=== PATIENT | male | born 1950 | race Caucasian/White ===

== ENCOUNTER 2024-05-02 06:53 | Day surgery (SDC) | payer OTHER, SELFPAY ==
[2024-05-02] VITALS (12 sets, daily range): BP systolic 118–151; BP diastolic 74–92; BMI 33.6
[2024-05-02 07:26] LABS: Glucose - Point of Care 171 mg/dl (70-99)
[2024-05-02] MEDS: LOW STRENGTH ASPIRIN 81 MG PO (07:28)
[2024-05-02] MEDS: NSS 301 ML IV (07:29)
--- NOTE | 2024-05-02 10:17 | ITS.CL.ANGIO ---
Competitive Intelligence Analyst - Angioplasty
Angioplasty
Procedure Report:
LEFT HEART CATHETERIZATION
Date of Procedure: [05/02/2024]
Procedures performed:
1: Coronary angiography
2: Conscious sedation
3: [ ]
Primary Care Physician: Unknown
Primary Salon Stylist: Self
INDICATION: Abnormal stress test, persistent chest pain
ACCESS: The patient was prepped and draped in usual sterile fashion. A 6 Belgian sheath was placed in the right right radial artery using the Seldinger over the wire technique. Total of 5000 units of heparin was given for anticoagulation
HEMODYNAMIC FINDINGS (mmHg):
LV(s/d,EDP): In order to conserve IV dye use, the aortic valve was not crossed into left ventricle
Ao(s/d,m): 112/80 with a mean of 100
Coronary Angiography: Using a JL 3.5 diagnostic catheter, left main artery was cannulated. Left system was imaged in multiple projections. We had a great deal difficulty engaging the right coronary artery due to subclavian tortuosity and great
vessel spasm. Multiple catheters were tried including multipurpose, AL-1, AR-1, 3 DRC. Finally, we were able to cannulate the right coronary artery with a 5 Belgian JR 5 catheter.
Dominance: Right dominant.
Left Main: Normal artery. Normal vessel. Minor luminal irregularities.
Left Anterior Descending: Large vessel. Mildly calcified. There is 30 to 40% stenosis in the mid LAD at the diagonal vessel bifurcation. Mild calcifications are present. Mild calcifications distal LAD. Normal resting flow.
Left Circumflex: Large vessel. Multiple OM's present. There is a short, focal 90% OM2 lesion. normal resting flow.
Right Coronary: Large vessel. Dominant. 20 to 30% proximal right coronary artery lesion. 95% lesion in the distal RCA proximal to the PLV PDA bifurcation. Normal resting flow.
Percutaneous Coronary Intervention (PCI): Due to the difficulty finding the right coronary artery, and amount of IV dye used, we decided to stage the right coronary artery intervention procedure.
FINAL RESULT: [ ]
Fluoroscopy Time (min): 14 minutes
Radiation Dose (mGy): 1193.70 mGy
DAP (Gy.cm2): 82.6388
Closure device: None. A TR band was applied for hemostasis at the right wrist.
Complications: None.
ASSESSMENT:
1: Double vessel coronary artery disease.
2: Severe right coronary artery stenosis requiring staged intervention.
CONCLUSIONS and RECOMMENDATIONS:
1: Start the patient on maximal antianginal, and dual antiplatelet therapy.
2: Bring back in 2 weeks with intervention to the right coronary artery.
[2024-05-02 10:18] LABS: Glucose - Point of Care 120 mg/dl (70-99)
[2024-05-02] MEDS: NSS 1000 IV (10:18)
[2024-05-02] MEDS: ZESTRIL 20 MG PO (10:20)
[2024-05-02] MEDS: NORVASC 2.5 MG PO (10:20)
[2024-05-02] MEDS: TYLENOL 650 MG PO (11:56)
== END 2024-05-02 12:54 | disposition home or self-care (01) ==
LOC: CATH 06:53
PROVIDERS: ATTENDING PHYSICIAN Internal Medicine Cardiovascular Disease; FAMILY PHYSICIAN Family Medicine
DX: I25.10 Atherosclerotic heart disease of native coronary artery without angina pectoris (principal); I13.0 Hypertensive heart and chronic kidney disease with heart failure and stage 1 through stage 4 chronic kidney disease, or unspecified chronic kidney disease; I50.22 Chronic systolic (congestive) heart failure; N18.2 Chronic kidney disease, stage 2 (mild); E11.22 Type 2 diabetes mellitus with diabetic chronic kidney disease; E78.5 Hyperlipidemia, unspecified; Z85.46 Personal history of malignant neoplasm of prostate; Z87.891 Personal history of nicotine dependence; Z79.82 Long term (current) use of aspirin; Z79.01 Long term (current) use of anticoagulants
CPT/HCPCS: 82962; 93005; 93458; C1894; Q9967

== ENCOUNTER 2024-05-16 06:22 | Day surgery (SDC) | payer OTHER, SELFPAY ==
[2024-05-16] VITALS (31 sets, daily range): BP systolic 110–179; BP diastolic 69–91; BMI 34.5
[2024-05-16] MEDS: LOW STRENGTH ASPIRIN 81 MG PO (07:15)
[2024-05-16] MEDS: PLAVIX 75 MG PO (07:15)
[2024-05-16] MEDS: NSS 299 ML IV (07:15)
[2024-05-16 07:50] LABS: Blood Urea Nitrogen 30 mg/dl (9-20); Calcium 9.7 mg/dl (8.4-10.2); Carbon Dioxide 26 mmol/L (22-30); Chloride 102 mmol/L (98-107); Estimated Creatinine Clearance 65 ml/min; Glucose 148 mg/dl (70-99); Sodium 141 mmol/L (135-145); eGFR > 60.00
[2024-05-16 09:05] LABS: ACT-LR - POC 282 Seconds (116-155)
[2024-05-16] MEDS: NSS 1000 IV (09:27)
--- NOTE | 2024-05-16 09:34 | ITS.CL.ANGIO ---
Research Physician - Angioplasty
Angioplasty
Procedure Report:
CARDIAC CATHETERIZATION REPORT
Date of Procedure: [05/16/2024]
Referring: Self
INDICATION: Abnormal nuclear stress test, stable angina
PROCEDURE:
PCI with STAR x 3 to the right coronary artery
Coronary angiography
Informed consent was obtained in the holding area. Inherent risks of the procedure including stroke, , NH, bleeding, were explained to the patient. The patient agreed to proceed despite the risks.
Bilateral groins were prepped and draped in sterile fashion. Using ultrasound guidance, a 6 Senegalese 23 cm sheath was placed in the right common femoral artery.
[ ]
INTERVENTION(S)
Using a hockey-stick guide, the right coronary artery was engaged. Coronary angiography was performed. Once again, we demonstrated several subsequent 95% lesions in the distal RCA just proximal to the PLV PDA bifurcation. In addition, there is a
calcified lesion at the bend in the proximal RCA. There is CAMERON II flow at rest in the PDA.
Using a run-through wire, both distal RCA lesions were crossed. Patient was given 10,000 units IV heparin for anticoagulation. Using guide liner catheter for support, the distal RCA lesions were predilated using a 2.0 x 20 mm balloon. We then,
upgraded to 2.5 x 20 mm semicompliant balloon and performed several balloon dilatations. There was improvement in the flow in the distal RPDA.
We then proceeded upsized to 2.5 x 20 mm balloon. We were not fully able to expand the lesions. We then took a 2.5 x 20 mm noncompliant balloon and performed several aggressive balloon dilatations. 2.5 x 20 mm NC balloon was able to fully expand
the lesions.
We then placed a 2.75 x 26 mm [place] drug-eluting stent in the distal right coronary artery just proximal to PDA PLV bifurcation. Just proximal to that stent, we deployed a 2.75 x 18 mm Guido drug-eluting stent. The stents were then postdilated using
a 2.75 x 20 m noncompliant balloon to 20 cameron. There was full expansion of the stents noted.
The GuideLiner catheter was then pulled back. We noted hazy area at the site of the proximal RCA band. We felt that that area needed to be covered with a stent as well. We deployed a 3.5 mm x 15 mm Guido drug-eluting stent to cover the lesion in
the RCA bend. The stent was then postdilated using a 3.5 x 12 mm noncompliant balloon. Intravascular ultrasound was performed using a [employer] eye catheter to evaluate for stent expansion. The minimal lumen diameter is at least 4.2 mm.
There was 180 degree calcifications also noted. It was clear that the stent was underexpanded. Therefore, we took a 4.0 x 12 mm noncompliant balloon and postdilated the stent to 14 cameron. Post balloon inflation there is no dissection or perforation
and CAMERON-3 flow throughout the RCA. At this point, without the patient was adequately revascularized and procedure was concluded.
Femoral angiography was performed. The patient was found to be suitable for closure device.
Closure Device: [6 Senegalese Angio-Seal device was successfully deployed]
Radiation (mGy): 2139.11 mGy
DAP (cm2.Gy): 109.49
Fluoroscopy time (minutes): 14.7 minutes
I was present with the patient for the duration of the moderate sedation and supervised staff who monitored the patient for the entire procedure. Details of sedation are entered by the nurse administering the sedation and details of the patient's
monitoring status are entered by a sign monitor role staff member into the [facility] laboratory electronic record system. Please see the nursing flow sheets for documentation of the name of the independent trained observer, and intra-service start and
end times.
I administered moderate sedation throughout this [65] minute procedure. An independent trained observer administered medications at my direction, and monitored, along with the monitor role staff member, the patient's level of consciousness and
physiological status throughout
CONCLUSIONS
1. Redemonstrated critical right coronary artery disease.
2. Successful PCI with STAR x 3 to the right coronary artery.
RECOMMENDATIONS:
1. Expectant management after cardiac catheterization via right femoral artery approach.
2. Limited activity x 1 week
3. Continue aggressive medical therapy. Patient is not on a beta-kelly due to baseline bradycardia and heart rates in the 40s and 50s.
[2024-05-16] MEDS: NORVASC 2.5 MG PO ×2 (10:36→19:39)
[2024-05-16] MEDS: COLACE 100 MG PO ×2 (10:36→19:39)
[2024-05-16] MEDS: ORETIC 25 MG PO (10:39)
[2024-05-16] MEDS: ZESTRIL 20 MG PO (10:39)
--- NOTE | 2024-05-16 15:50 | CM ---
Addendum entered by Ban Pyle RN 05/17/24 10:39:
Patient agreeable to the cost.
Original Note:
Asked to check co-pay for Brilinta 90 mg po bid. Telephone call to his insurance to check on co-pay,([phone]) to check on co-pay. His co-pay for retail would be $47.00 a month and for a 90 day supply mail order would be $94.00 for a 90 day
supply. He can use the one free month coupon. Telephone call to [facility] in [place] who states they have one bottle of Brilinta in stock. Updated AMBULANCE DRIVER regarding above.
--- NOTE | 2024-05-16 18:46 | PTCARENOTE ---
Received pt post cardiac cath. VSS. Right groin site w/ dressing and angioseal intact. Orders noted.
[2024-05-16] MEDS: BRILINTA 90 MG PO (19:39)
--- NOTE | 2024-05-16 21:30 | PTCARENOTE ---
Received patient at change of shift. Patient awake, alert, and oriented eating dinner in bed. BP 139/86, SR-NS 52-70 with PVCs, and 95% on room air. No chest pain. Right groin site clean, dry, and intact. Soft with no hematoma. Ecchymotic around
gauze. Discussed care plan. Patient verbalized understanding. Call valentine within reach.
[2024-05-17 04:34] VITALS: BP 137/76
[2024-05-17 04:37] VITALS: BP 137/76
[2024-05-17 05:14] VITALS: BMI 33.9
--- NOTE | 2024-05-17 05:29 | PTCARENOTE ---
Patient rested quietly during the night. Right groin soft, no hematoma, clean, dry, and intact. Ecchymotic around gauze. Ambulated to bathroom throughout night, independently. No complaints of chest pain.
[2024-05-17 05:31] LABS: Hematocrit 39.5 % (39.0-52.0); Hemoglobin 14.4 g/dL (13.0-18.0); Mean Corp Hgb Conc. 36.5 g/dL (33.0-37.0); Mean Corpuscular Hgb 31.6 pg (27.0-31.0); Mean Corpuscular Volume 86.6 fL (80.0-94.0); Mean Platelet Volume 11.2 fL (7.4-10.4); Platelet Count 196 10^3/uL (130-400); Red Blood Cell Count 4.56 10^6/uL (4.70-6.10); Red Cell Dist. Width 12.9 % (11.5-14.5); White Blood Cell Count 7.8 10^3/uL (4.8-10.8)
[2024-05-17 05:57] LABS: Blood Urea Nitrogen 23 mg/dl (9-20); Calcium 9.7 mg/dl (8.4-10.2); Carbon Dioxide 24 mmol/L (22-30); Chloride 104 mmol/L (98-107); Estimated Creatinine Clearance 79 ml/min; Glucose 152 mg/dl (70-99); HDL Cholesterol 38 mg/dl; LDL Cholesterol, Calculated 73 mg/dl; Potassium 3.8 mmol/L (3.5-5.1); Sodium 139 mmol/L (135-145); Total Cholesterol 147 mg/dl (50-199); Triglyceride 184 mg/dl (10-149); Very Low Density Lipoprotein 36 mg/dl (0-30); eGFR > 60.00
[2024-05-17 06:10] VITALS: BMI 33.9
[2024-05-17 07:39] VITALS: BP 124/77
[2024-05-17 08:17] LABS: ACT-LR - POC > 397 Seconds (116-155)
[2024-05-17 08:17] LABS: ACT-LR - POC > 397 Seconds (116-155)
[2024-05-17] MEDS: ASPIR LOW (ENTERIC COATED) 81 MG PO (08:54)
[2024-05-17] MEDS: NORVASC 2.5 MG PO (08:54)
[2024-05-17] MEDS: BRILINTA 90 MG PO (08:54)
[2024-05-17] MEDS: COLACE 100 MG PO (08:54)
[2024-05-17] MEDS: ORETIC 25 MG PO (08:55)
[2024-05-17] MEDS: ZYLOPRIM 300 MG PO (08:55)
[2024-05-17] MEDS: ZESTRIL 20 MG PO (08:55)
[2024-05-17 09:25] LABS: Glycohemoglobin (HgbA1c) 6.8 % (4.0-5.6)
--- NOTE | 2024-05-17 09:44 | W.PN.CARDCBS ---
Addendum entered and electronically signed by Kelsey Henderson MD 05/17/24 15:54:
I saw and examined the patient.
The Jig And Fixture Maker's note was reviewed and I agree with the note.
Comment: Patient did well overnight with no acute chest discomfort or shortness of breath since heart catheterization. Right groin hematoma postprocedure with hemostasis being achieved with manual pressure. Patient is ecchymotic in the region but
denies any significant complaints. He has been out of bed ambulating without any limitations.
Vital signs and lab work are reviewed. On exam patient is well-appearing, no acute distress, alert, awake and oriented x 3, regular rate, normal S1 and S2, lungs are clear to auscultation bilaterally, abdomen is soft, nontender, nondistended with
active bowel sounds, right groin is ecchymotic with 2+ femoral pulse without evidence of bruit or hematoma. Warm extremities without significant edema. 2+ DP pulses
Recommendations:
1. Patient is status post RCA PCI yesterday by Dr. Dominik Jay-plan to continue dual antiplatelet therapy with daily baby aspirin and Brilinta along with high intensity statin.
2. Aggressive management of cardiovascular risk factors.
3. Follow-up will be set up with Dr. Jay as outpatient.
4. Patient is otherwise stable for discharge home
Kelsey Henderson MD, [facility], [facility]
Original Note:
Today's Communication / Plan
-
DAPT w/asa, brilinta
add atorvastatin
better DM management per PCP
followup w/Dr. Jay
home today
Impression / Plan
-
PCP: Stormy Edouard MD
CDY: Dominik Jay MD
74 y/o, presents with elevated calcium score 817, prior cath 05/02 with 95% distal RCA stenosis. Returned for staged RCA PCI yesterday, s/p prox RCA STAR x1 and distal RCA STAR x2.
Right groin site with HT in recovery post cath, hemostasis achieved with manual compression
IMPRESSION:
CAD, elevated calcium score 817
S/P RCA PCI w/dRCA STAR x2, prox RCA STAR x1, 05/16/24
Residual LAD, OM2 CAD- for medical management
Bradycardia
HTN
HLD
DM, diet controlled
Renal artery stenosis
CKD2
Ascending Ao Aneurysm (4.3cm, 2022)
Prostate Ca
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
PLAN:
Tele- SB 40-50s, rare PVC, couplet
right groin site stable
Had been on asa/plavix prior to PCI- will change now to brilinta, agreeable to cost per CM
BB contraindicated d/t stable baseline bradycardia
Lipid profile noted- will start atorvastatin 40mg daily
Cardiac rehab consulted
DM- pt has been resistant to meds but HgbA1C is 6.8%- to f/u w/PCP re:diabetic management, meds
Creat stable post dye load
Followup with Dr. Jay as scheduled
Home today
Progress Note - Upholsterer Inside
Subjective
Date of Service: May 17, 2024
Denies cp/palps/dyspnea
OOB ambulating
groin site without pain
Objective
Labs:
05/17/24 04:42
05/17/24 04:42
Labs
Hgb 14.4 g/dL (13.0-18.0) 05/17/24 04:42
Hct 39.5 % (39.0-52.0) 05/17/24 04:42
Plt Count 196 10^3/uL (130-400) 05/17/24 04:42
Sodium 139 mmol/L (135-145) 05/17/24 04:42
Potassium 3.8 mmol/L (3.5-5.1) 05/17/24 04:42
BUN 23 mg/dl (9-20) H 05/17/24 04:42
Creatinine 0.9 mg/dL (0.7-1.3) 05/17/24 04:42
Glucose 152 mg/dl (70-99) H 05/17/24 04:42
Vital Signs and I&O:
Vital Signs
Temp Pulse Resp BP Pulse Ox
98.3 F 48 18 124/77 98
05/17/24 07:41 05/17/24 09:30 05/17/24 07:41 05/17/24 08:54 05/17/24 07:41
Vital Signs
Temp Pulse Resp BP Pulse Ox
98.3 F 48 18 124/77 98
05/17/24 07:41 05/17/24 09:30 05/17/24 07:41 05/17/24 08:54 05/17/24 07:41
Intake & Output
05/15/24 05/16/24 05/17/24 05/18/24
06:59 06:59 06:59 06:59
Intake Total 360 / 360
Balance 360 / 360
Physical Exam
Physical Exam
AAOx3, MAEE 5/5
RRR S1 S2 no murmurs
CTA bilat, non labored
soft abd, + bs
right groin with ecchymosis and palpable ht noted, soft/non tender, no bleeding/oozing, no bruit
bilat extremities w/palpalble distal pulses, no edema
--- NOTE | 2024-05-17 09:56 | W.DS.TRANS ---
DC Summary - Corset Fitter
-
Discharge Instructions:
Discharge Diagnosis/Procedures Angioplasty with stent x3 to Right Coronary
artery
Diet Low Cholesterol
Driving Restrictions No driving for 24 hours
Other Services Cardiac Rehab
Instructions:
Stand-Alone Forms: DC Instructions- Cath/EP Lab
Changes to Home Medications: Yes
Discharge Medications:
DC Medications w/original date entered in [employer]
allopurinol 300 mg tablet 300 mg PO DAILY 05/02/24
amlodipine 2.5 mg tablet 2.5 mg PO BID #60 tabs 05/02/24
aspirin 81 mg tablet,delayed release 81 mg PO DAILY 05/02/24
lisinopril 20 mg-hydrochlorothiazide 25 mg tablet 1 tab PO DAILY 05/02/24
nitroglycerin 0.4 mg sublingual tablet 0.4 mg sublingual [id number] PRN chest pain #25 tabs 05/02/24
ticagrelor 90 mg tablet (Brilinta) 90 mg PO BID #60 tabs 05/16/24
atorvastatin 40 mg tablet 40 mg PO DAILY #90 tabs 05/17/24
Home Medication Changes
STOP: clopidogrel
START: ticagrelor, atorvastatin
Pending Results: No
--- NOTE | 2024-05-17 10:47 | CM ---
Chart reviewed. Patient is independent of ADLS, lives with his n a 2 STH, 0 DENISA, 0 DME. Patient with no needs. Plan is for the patient to return home. CM to follow
[2024-05-17 12:45] VITALS: BP 132/81
== END 2024-05-17 13:10 | disposition home or self-care (01) ==
LOC: CATH 06:22
PROVIDERS: Nurse Practitioner Adult Health; ATTENDING PHYSICIAN Internal Medicine Cardiovascular Disease; FAMILY PHYSICIAN Family Medicine
DX: I25.118 Atherosclerotic heart disease of native coronary artery with other forms of angina pectoris (principal); R94.39 Abnormal result of other cardiovascular function study; I12.9 Hypertensive chronic kidney disease with stage 1 through stage 4 chronic kidney disease, or unspecified chronic kidney disease; N18.2 Chronic kidney disease, stage 2 (mild); E78.5 Hyperlipidemia, unspecified; E11.22 Type 2 diabetes mellitus with diabetic chronic kidney disease; Z85.46 Personal history of malignant neoplasm of prostate; Z79.02 Long term (current) use of antithrombotics/antiplatelets; Z79.82 Long term (current) use of aspirin
CPT/HCPCS: 92978; 99152; 99153; C1769; C1725; C1894; C1753; C1887; 80048; 80061; 83036; 85027; 85347; 93005; 93454; C1760; C1874; C9600; Q9967